=== PATIENT | female | born 1975 | race African-American/Black ===

== ENCOUNTER 2022-12-18 09:27 | Emergency (ER) | payer OTHER ==
[~2022-12-18] VITALS: Ht 162.6 cm; Wt 76.2 kg
[2022-12-18 09:27] VITALS: BP 160/94
--- NOTE | 2022-12-18 09:31 | NUR ---
BIBA BLS TO ER BED 12
--- NOTE | 2022-12-18 09:32 | NUR ---
Pt arrived in full C-spine precautions with hard C-collar and backboard in place. ED Physician notified.
[2022-12-18] MEDS ORDERED: ACETAMINOPHEN 325 MG TAB PO ONE (10:25)
--- NOTE | 2022-12-18 10:39 | NUR ---
Pt given tylenol for 5/10 pain in the head/neck area. Not relieved by non-pharm interventions
--- NOTE | 2022-12-18 10:44 | NUR ---
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
[2022-12-18] MEDS ORDERED: KETOROLAC 30 MG/ML VIAL IM ONE (12:10)
[2022-12-18] MEDS ORDERED: NAPR-1704 PO (12:13)
[2022-12-18] MEDS ORDERED: ACET-8905 PO (12:13)
[2022-12-18 12:25] VITALS: BP 137/73
--- NOTE | 2022-12-18 12:26 | NUR ---
Patient discharged with v/s stable. Written and verbal after care instructions given and explained. Patient alert, oriented and verbalized understanding of instructions. Ambulatory with steady gait. All questions addressed prior to discharge. ID band removed. Patient advised to follow up with PMD. Rx of hydrocodone/acetaminophen and naproxen given. Patient educated on indication of medication including possible reaction and side effects. Opportunity to ask questions provided and answered.
== END 2022-12-18 12:25 | disposition home or self-care (01) ==
LOC: MED 09:27
DX: S16.1XXA Strain of muscle, fascia and tendon at neck level, initial encounter (principal); S39.012A Strain of muscle, fascia and tendon of lower back, initial encounter; S09.90XA Unspecified injury of head, initial encounter; F15.90 Other stimulant use, unspecified, uncomplicated; V49.88XA Car occupant (driver) (passenger) injured in other specified transport accidents, initial encounter; Y93.89 Activity, other specified; Y92.89 Other specified places as the place of occurrence of the external cause; Y99.8 Other external cause status
CPT/HCPCS: 70450; 72125; 81025; 96372; 99285; J1885